=== PATIENT | female | born 1980 | race Caucasian/White ===

== ENCOUNTER 2020-11-14 13:10 | Emergency (ER) | payer OTHER ==
[~2020-11-14] VITALS: Ht 172.7 cm; Wt 81.7 kg
[~2020-11-14 13:10] MED LIST: ACETAMINOPHEN-1 EAC1; IBUPROFEN 800800 M1 PO; NITROFURANTOIN100 MG PO
[2020-11-14 13:47] LABS: HEMATOCRIT 42.6 % (37.0-47.0); MCH 28.8 pg (26.0-34.0); MCHC 32.9 g/dL (28.0-37.0); MCV 87.6 fL (80.0-100.0); MPV 7.9 fl. (7.2-11.1); NUCLEATED RBCS 0 /100WBC; PLATELET COUNT* 273 thou/uL (150-400); RBC 4.87 mil/uL (4.20-5.00); RDW-CV 12.8 % (10.5-14.5)
[2020-11-14 13:48] LABS: URINE BILIRUBIN NEGATIVE (Negative); URINE BLOOD 3+ (Negative); URINE CLARITY CLEAR; URINE COLOR YELLOW; URINE GLUCOSE-RANDOM NEGATIVE (Negative); URINE KETONES NEGATIVE (Negative); URINE PROTEIN 1+ (Negative)
[2020-11-14 13:51] LABS: URINE LEUKOCYTES-REFLEX 2+ (Negative); URINE NITRITE-REFLEX POSITIVE (Negative)
[2020-11-14 13:54] LABS: SQUAMOUS 0-3 Few /LPF (0-3)
[2020-11-14 13:55] LABS: URINE WBC-REFLEX >25 Many /HPF (0-5); WBC CLUMPS Moderate (None Seen)
[2020-11-14 13:56] LABS: BACTERIA-REFLEX >30 Many /HPF (None Seen); CASTS None Seen /LPF (None Seen); CRYSTALS None Seen /LPF (None Seen); MUCUS 4-6 Moderate strn/LPF (None Seen); URINE RBC 3-10 Few /HPF (0-2)
[2020-11-14 13:57] LABS: CALCIUM 9.2 mg/dL (8.5-10.1); CREATININE 0.8 mg/dL (0.6-1.3); POTASSIUM 3.6 mmol/L (3.5-5.1)
[2020-11-14 14:01] LABS: ALBUMIN 4.1 g/dL (3.4-5.0); TOTAL BILIRUBIN 0.6 mg/dL (<0.1-1.0); TOTAL PROTEIN 7.7 g/dL (6.4-8.2)
[2020-11-14] MEDS ORDERED: KEFLEX500 M1 PO (14:11)
[2020-11-14] MEDS ORDERED: HYDROCODON-ACE1 EAC7 PO (14:11)
[2020-11-14 14:18] LABS: ABSOLUTE LYMPHOCYTES 1.8 thou/uL (0.8-5.3); ABSOLUTE MONOCYTES 0.2 thou/uL (0.0-1.2); ABSOLUTE NEUTROPHILS 14.1 thou/uL (1.6-8.1); ATYPICAL LYMPHS 5 %
[2020-11-14 14:19] LABS: PLATELET ESTIMATE ADEQUATE
[2020-11-14 14:26] VITALS: BP 120/60
--- NOTE | 2020-11-15 10:31 | EKG ---
[place] [address] ELECTROCARDIOGRAM REPORT Name: JM RICHEY Room: [facility]#: [id number] Admission: 11/14/20 Attend Phys: Discharge: 11/14/20 Date of : 84 Date of Service: 11/14/20 1344 Report #: [id number] THIS REPORT FOR: //name// [facility] ED Test Date: 2020-11-14 Test Time: 13:44:31 Pat Name: JM RICHEY Department: Room: Gender: F Ambulatory Care: [place] : 1980 Requested By: Sushil Alford Order Number: [id number] : Finesse Oliver Measurements Intervals Ezel Rate: 98 P: 48 IA: 144 QRS: 67 QRSD: 87 T: 21 QT: 336 QTc: 430 Interpretive Statements Sinus rhythm Compared to ECG 06/07/2009 14:27:03 Sinus arrhythmia no longer present Electronically Signed On 11-15-2020 10:31:33 [employer] by Finesse Oliver [email or web address] <ELECTRONICALLY SIGNED> By: Finesse Oliver MD, [facility] 11/15/20 1031 134 134 Finesse Oliver MD, [facility] /EPI
== END 2020-11-14 14:26 | disposition home or self-care (01) ==
LOC: M.ERS 13:10
PROVIDERS: Emergency Medicine Emergency Medical Services
DX: N12 Tubulo-interstitial nephritis, not specified as acute or chronic (principal); Z90.710 Acquired absence of both cervix and uterus; Z90.89 Acquired absence of other organs; Z85.41 Personal history of malignant neoplasm of cervix uteri